=== PATIENT | female | born 1970 | race Caucasian/White ===

== ENCOUNTER 2019-08-09 16:07 | Inpatient (IN) ==
[2019-08-09] MEDS ORDERED: Lidocaine/EPI 1:100k 1% 30 ML VIAL INFILT ONE (16:30)
[2019-08-09] MEDS ORDERED: *HR* HYDROcodone/Acet 5/325 mg TABLET PO ONE (16:32)
[2019-08-09] MEDS ORDERED: Ampicillin/Sulbactam 1,500 MG in 0.9 % Sodium Chloride Mini Bag 100 ML IVPB ONE (17:14)
[2019-08-09 17:45] LABS: Basophils # 0.1 K/mcL (0.0-0.2); Basophils % 0.5 %; Eosinophils # 0.3 K/mcL (0.0-0.6); Eosinophils % 2.1 %; Hematocrit 39.3 % (35.3-44.9); Hemoglobin 12.8 g/dL (11.5-15.4); Immature Granulocytes % 0.6 % (0-4); Lymphocytes % 13.8 %; Mean Corpuscular HGB Conc 32.6 g/dL (31.6-35.5); Mean Corpuscular Hemoglobin 28.4 pg (28.0-33.3); Mean Corpuscular Volume 87.1 fL (83.0-100.0); Mean Platelet Volume 11.8 fL (9.4-12.4); Monocytes % 6.9 %; Neutrophils # 11.1 K/mcL (1.6-8.9); Platelet Count 183 K/mcL (140-400); Red Blood Count 4.51 M/mcL (3.82-4.97); Red Cell Distribution Width 14.2 % (11.5-14.5); Segmented Neutrophils % 76.1 %; White Blood Count 14.5 K/mcL (4.3-11.1)
[2019-08-09 18:08] LABS: BUN/Creatinine Ratio 20 (6-26); Blood Urea Nitrogen 16 mg/dL (6-20); C-Reactive Protein 97 mg/L (Less than 10); Calcium 9.2 mg/dL (8.6-10.3); Carbon Dioxide 25 mEq/L (23-29); Chloride 104 mEq/L (98-107); Glucose 143 mg/dL (70-105); Osmolality,Calculated 288 (280-300); Potassium 3.7 mEq/L (3.5-5.1); Sodium 137 mEq/L (136-145); eGFR For African Americans > 60 (> 60); eGFR For Non-African Americans > 60 (> 60)
[2019-08-09] MEDS ORDERED: Ondansetron ODT 4 MG TAB.RAPDIS SL PRN (18:32)
[2019-08-09] MEDS ORDERED: Ringers Solution, Lactated 1,000 ML IVC ONE (18:39)
[2019-08-09] MEDS ORDERED: Isovue-370 500 ML BOTTLE IVP ONE (18:55)
[2019-08-09] MEDS: *HR* OxyCODONE Immed Rel 5 MG TABLET PO PRN (21:16)
[2019-08-10] MEDS: Ampicillin/Sulbactam 3,000 MG in 0.9 % Sodium Chloride 100 ML IVPB SCH ×2 (00:48→06:00)
[2019-08-10 05:40] LABS: Basophils % 0.3 %; Eosinophils # 0.1 K/mcL (0.0-0.6); Eosinophils % 0.8 %; Hematocrit 38.8 % (35.3-44.9); Hemoglobin 12.7 g/dL (11.5-15.4); Immature Granulocytes % 0.6 % (0-4); Lymphocytes # 1.2 K/mcL (0.6-4.6); Lymphocytes % 9.1 %; Mean Corpuscular HGB Conc 32.7 g/dL (31.6-35.5); Mean Corpuscular Hemoglobin 28.3 pg (28.0-33.3); Mean Corpuscular Volume 86.4 fL (83.0-100.0); Monocytes # 0.7 K/mcL (0.0-1.3); Monocytes % 4.9 %; Neutrophils # 11.4 K/mcL (1.6-8.9); Platelet Count 181 K/mcL (140-400); Red Blood Count 4.49 M/mcL (3.82-4.97); Red Cell Distribution Width 14.4 % (11.5-14.5); Segmented Neutrophils % 84.3 %; White Blood Count 13.5 K/mcL (4.3-11.1)
[2019-08-10] MEDS: *HR* OxyCODONE Immed Rel 5 MG TABLET PO PRN ×3 (06:05→23:54)
[2019-08-10 06:06] LABS: BUN/Creatinine Ratio 16 (6-26); Blood Urea Nitrogen 10 mg/dL (6-20); Calcium 8.8 mg/dL (8.6-10.3); Carbon Dioxide 24 mEq/L (23-29); Chloride 104 mEq/L (98-107); Glucose 191 mg/dL (70-105); Osmolality,Calculated 284 (280-300); Potassium 3.8 mEq/L (3.5-5.1); Sodium 135 mEq/L (136-145); eGFR For African Americans > 60 (> 60); eGFR For Non-African Americans > 60 (> 60)
[2019-08-10] MEDS: FLUoxetine 20 MG CAPSULE PO SCH (09:53)
[2019-08-10] MEDS: BuPROPion XL (24 HR) 150 MG TABLET PO SCH (09:53)
[2019-08-10] MEDS ORDERED: *HR* LORazepam 2 MG/ML VIAL IVP PRN ×3 (12:04)
[2019-08-10] MEDS: Ampicillin/Sulbactam 3,000 MG in 0.9 % Sodium Chloride Mini Bag 100 ML IVPB SCH ×2 (12:13→18:08)
[2019-08-10] MEDS: Folic Acid 1 MG TABLET PO SCH (13:51)
[2019-08-10] MEDS: Thiamine (B-1) 100 MG TABLET PO SCH (13:51)
[2019-08-10] MEDS: Vitamin B Complex/Vit C/Vit E 1 EACH TABLET PO SCH (13:51)
[2019-08-10] MEDS: Chlorhexidine Rinse 15 ML MOUTHWASH MM SCH ×2 (13:51→21:15)
[2019-08-10] MEDS: *HR* Heparin 5,000 UNIT/ML VIAL SQ SCH (21:16)
[2019-08-11] MEDS: Ampicillin/Sulbactam 3,000 MG in 0.9 % Sodium Chloride Mini Bag 100 ML IVPB SCH ×4 (02:22→17:52)
[2019-08-11] MEDS: *HR* Heparin 5,000 UNIT/ML VIAL SQ SCH ×3 (05:48→21:14)
[2019-08-11 05:52] LABS: Basophils % 0.4 %; Eosinophils # 0.2 K/mcL (0.0-0.6); Eosinophils % 2.1 %; Hematocrit 37.1 % (35.3-44.9); Hemoglobin 12.3 g/dL (11.5-15.4); Immature Granulocytes % 0.5 % (0-4); Lymphocytes # 1.6 K/mcL (0.6-4.6); Lymphocytes % 15.7 %; Mean Corpuscular HGB Conc 33.2 g/dL (31.6-35.5); Mean Corpuscular Hemoglobin 28.5 pg (28.0-33.3); Mean Corpuscular Volume 86.1 fL (83.0-100.0); Mean Platelet Volume 11.3 fL (9.4-12.4); Monocytes # 0.5 K/mcL (0.0-1.3); Monocytes % 5.2 %; Platelet Count 189 K/mcL (140-400); Red Blood Count 4.31 M/mcL (3.82-4.97); Red Cell Distribution Width 14.2 % (11.5-14.5); Segmented Neutrophils % 76.1 %; White Blood Count 10.5 K/mcL (4.3-11.1)
[2019-08-11 06:13] LABS: BUN/Creatinine Ratio 19 (6-26); Blood Urea Nitrogen 14 mg/dL (6-20); Calcium 8.9 mg/dL (8.6-10.3); Carbon Dioxide 27 mEq/L (23-29); Chloride 104 mEq/L (98-107); Glucose 123 mg/dL (70-105); Magnesium 2.3 mg/dL (1.6-2.6); Osmolality,Calculated 290 (280-300); Potassium 3.8 mEq/L (3.5-5.1); Sodium 139 mEq/L (136-145); eGFR For African Americans > 60 (> 60); eGFR For Non-African Americans > 60 (> 60)
[2019-08-11] MEDS: BuPROPion XL (24 HR) 150 MG TABLET PO SCH (09:15)
[2019-08-11] MEDS: Thiamine (B-1) 100 MG TABLET PO SCH (09:16)
[2019-08-11] MEDS: FLUoxetine 20 MG CAPSULE PO SCH (09:16)
[2019-08-11] MEDS: *HR* OxyCODONE Immed Rel 5 MG TABLET PO PRN (09:16)
[2019-08-11] MEDS: Folic Acid 1 MG TABLET PO SCH (09:17)
[2019-08-11] MEDS: Vitamin B Complex/Vit C/Vit E 1 EACH TABLET PO SCH (09:17)
[2019-08-11] MEDS: Chlorhexidine Rinse 15 ML MOUTHWASH MM SCH ×2 (09:17→21:14)
[2019-08-12] MEDS: Ampicillin/Sulbactam 3,000 MG in 0.9 % Sodium Chloride Mini Bag 100 ML IVPB SCH ×4 (01:19→17:11)
[2019-08-12] MEDS ORDERED: Melatonin 3 MG TABLET PO PRN (04:07)
[2019-08-12 04:11] LABS: White Blood Count 9.1 K/mcL (4.3-11.1)
[2019-08-12 04:12] LABS: Basophils # 0.1 K/mcL (0.0-0.2); Basophils % 0.7 %; Eosinophils # 0.3 K/mcL (0.0-0.6); Eosinophils % 2.7 %; Hematocrit 35.9 % (35.3-44.9); Hemoglobin 11.7 g/dL (11.5-15.4); Immature Granulocytes % 0.8 % (0-4); Lymphocytes # 2.4 K/mcL (0.6-4.6); Lymphocytes % 26.5 %; Mean Corpuscular HGB Conc 32.6 g/dL (31.6-35.5); Mean Corpuscular Hemoglobin 28.2 pg (28.0-33.3); Mean Corpuscular Volume 86.5 fL (83.0-100.0); Mean Platelet Volume 11.6 fL (9.4-12.4); Monocytes # 0.5 K/mcL (0.0-1.3); Monocytes % 5.7 %; Neutrophils # 5.8 K/mcL (1.6-8.9); Platelet Count 190 K/mcL (140-400); Red Blood Count 4.15 M/mcL (3.82-4.97); Red Cell Distribution Width 14.3 % (11.5-14.5); Segmented Neutrophils % 63.6 %
[2019-08-12 04:35] LABS: BUN/Creatinine Ratio 22 (6-26); Blood Urea Nitrogen 17 mg/dL (6-20); Calcium 8.9 mg/dL (8.6-10.3); Carbon Dioxide 27 mEq/L (23-29); Chloride 105 mEq/L (98-107); Glucose 114 mg/dL (70-105); Magnesium 2.1 mg/dL (1.6-2.6); Osmolality,Calculated 294 (280-300); Sodium 141 mEq/L (136-145); eGFR For African Americans > 60 (> 60); eGFR For Non-African Americans > 60 (> 60)
[2019-08-12] MEDS: *HR* Heparin 5,000 UNIT/ML VIAL SQ SCH ×3 (06:12→20:38)
[2019-08-12] MEDS: Vitamin B Complex/Vit C/Vit E 1 EACH TABLET PO SCH (10:09)
[2019-08-12] MEDS: Thiamine (B-1) 100 MG TABLET PO SCH (10:09)
[2019-08-12] MEDS: BuPROPion XL (24 HR) 150 MG TABLET PO SCH (10:09)
[2019-08-12] MEDS: Chlorhexidine Rinse 15 ML MOUTHWASH MM SCH ×2 (10:10→20:39)
[2019-08-12] MEDS: Folic Acid 1 MG TABLET PO SCH (10:10)
[2019-08-12] MEDS: FLUoxetine 20 MG CAPSULE PO SCH (10:11)
[2019-08-13 04:44] LABS: Basophils # 0.1 K/mcL (0.0-0.2); Basophils % 0.8 %; Eosinophils # 0.4 K/mcL (0.0-0.6); Eosinophils % 5.7 %; Hemoglobin 12.3 g/dL (11.5-15.4); Immature Granulocytes % 1.2 % (0-4); Lymphocytes # 2.1 K/mcL (0.6-4.6); Lymphocytes % 27.1 %; Mean Corpuscular HGB Conc 33.2 g/dL (31.6-35.5); Mean Corpuscular Hemoglobin 28.7 pg (28.0-33.3); Mean Corpuscular Volume 86.2 fL (83.0-100.0); Mean Platelet Volume 11.4 fL (9.4-12.4); Monocytes # 0.5 K/mcL (0.0-1.3); Monocytes % 6.6 %; Neutrophils # 4.5 K/mcL (1.6-8.9); Platelet Count 206 K/mcL (140-400); Red Blood Count 4.29 M/mcL (3.82-4.97); Red Cell Distribution Width 14.1 % (11.5-14.5); Segmented Neutrophils % 58.6 %; White Blood Count 7.7 K/mcL (4.3-11.1)
[2019-08-13 04:55] LABS: BUN/Creatinine Ratio 16 (6-26); Blood Urea Nitrogen 13 mg/dL (6-20); Calcium 9.2 mg/dL (8.6-10.3); Carbon Dioxide 28 mEq/L (23-29); Chloride 103 mEq/L (98-107); Glucose 100 mg/dL (70-105); Magnesium 2.2 mg/dL (1.6-2.6); Osmolality,Calculated 288 (280-300); Sodium 139 mEq/L (136-145); eGFR For African Americans > 60 (> 60); eGFR For Non-African Americans > 60 (> 60)
[2019-08-13 05:05] VITALS: BP 123/76
[2019-08-13] MEDS: *HR* Heparin 5,000 UNIT/ML VIAL SQ SCH (06:53)
[2019-08-13] MEDS: FLUoxetine 20 MG CAPSULE PO SCH (10:00)
[2019-08-13] MEDS: Chlorhexidine Rinse 15 ML MOUTHWASH MM SCH (10:00)
[2019-08-13] MEDS: Folic Acid 1 MG TABLET PO SCH (10:01)
[2019-08-13] MEDS: BuPROPion XL (24 HR) 150 MG TABLET PO SCH (10:01)
[2019-08-13] MEDS: Vitamin B Complex/Vit C/Vit E 1 EACH TABLET PO SCH (10:01)
[2019-08-13] MEDS: Thiamine (B-1) 100 MG TABLET PO SCH (10:01)
[2019-08-13] MEDS ORDERED: Aminoglycoside Consult 1 EACH MC ONE (12:46)
== END 2019-08-13 12:47 | disposition home or self-care (01) | DRG 383 ==
LOC: 3ANU 16:07 → EMEROOARM 16:07 → SUATTDRO 18:41 → 3ANU 20:15
PROVIDERS: ADMIT Internal Medicine; ATTEND Pharmacist

== ENCOUNTER 2019-08-20 09:48 | Inpatient (IN) ==
[2019-08-20 10:56] LABS: Estimated Average Glucose 114 mg/dl
[2019-08-20 11:00] LABS: Bilirubin,Urine Negative (Negative); Blood,Urine Negative (Negative); Clarity,Urine Cloudy (Clear); Color,Urine Yellow (Yellow); Glucose,Urine (UA) Normal (Normal); Ketones,Urine Negative (Negative); Leukocyte Esterase,Urine Negative (Negative); Nitrite,Urine Negative (Negative); Protein,Urine Negative (Neg-Trace); Specific Gravity,Urine 1.025 (1.010-1.025); Urobilinogen,Urine Normal (Normal)
[2019-08-20 11:00] LABS: Basophils # 0.1 K/mcL (0.0-0.2); Basophils % 1.1 %; Eosinophils # 0.2 K/mcL (0.0-0.6); Eosinophils % 2.4 %; Hematocrit 42.6 % (35.3-44.9); Hemoglobin 13.9 g/dL (11.5-15.4); Immature Granulocytes % 1.4 % (0-4); Lymphocytes # 1.7 K/mcL (0.6-4.6); Lymphocytes % 19.1 %; Mean Corpuscular HGB Conc 32.6 g/dL (31.6-35.5); Mean Corpuscular Hemoglobin 27.8 pg (28.0-33.3); Mean Corpuscular Volume 85.2 fL (83.0-100.0); Mean Platelet Volume 10.6 fL (9.4-12.4); Monocytes # 0.6 K/mcL (0.0-1.3); Monocytes % 6.1 %; Neutrophils # 6.3 K/mcL (1.6-8.9); Platelet Count 223 K/mcL (140-400); Red Cell Distribution Width 14.5 % (11.5-14.5); Segmented Neutrophils % 69.9 %
[2019-08-20 11:04] LABS: Bacteria,Urine None Seen per hpf (None-Few); Hyaline Casts,Urine None Seen per lpf (None-Few); Squamous Epithelial Cell,Urine Many per lpf (None-Few); WBC,Urine 0-3 per hpf (0-3)
[2019-08-20 11:05] LABS: Amphetamine Screen,Urine Negative ng/mL (Cutoff=1000); Barbiturate Screen,Urine Negative ng/mL (Cutoff=200); Benzodiazepines Screen,Urine Negative ng/mL (Cutoff=200); Cannabinoid Screen,Urine Negative ng/mL (Cutoff = 50); Cocaine Screen,Urine Negative ng/mL (Cutoff= 300); Opiate Screen,Urine Positive ng/mL (Cutoff=300); Phencyclidine Screen,Urine Negative ng/mL (Cutoff=25)
[2019-08-20 11:47] LABS: Acetaminophen < 10 mcg/mL (10-20); BUN/Creatinine Ratio 16 (6-26); Blood Urea Nitrogen 15 mg/dL (6-20); Calcium 9.8 mg/dL (8.6-10.3); Carbon Dioxide 21 mEq/L (23-29); Chloride 104 mEq/L (98-107); Cholesterol 173 mg/dL (< 200); Ethanol < 10 mg/dL (Less than 10); Glucose 111 mg/dL (70-105); Osmolality,Calculated 282 (280-300); Potassium 4.1 mEq/L (3.5-5.1); Salicylate < 2.5 mg/dL (15.0-30.0); Sodium 135 mEq/L (136-145); Triglycerides 110 mg/dL (< 150); eGFR For African Americans > 60 (> 60); eGFR For Non-African Americans > 60 (> 60)
[2019-08-20] MEDS ORDERED: Haloperidol Lactate 5 MG/ML VIAL IM PRN (13:03)
[2019-08-20] MEDS ORDERED: Mag Hydrox/Al Hydrox/Simeth 30 ML UDC PO PRN (13:03)
[2019-08-20] MEDS ORDERED: *HR* LORazepam 1 MG TABLET PO PRN (13:03)
[2019-08-20] MEDS ORDERED: *HR* LORazepam 2 MG/ML VIAL IM PRN (13:03)
[2019-08-20] MEDS ORDERED: MOM Conc 10 ML UD.LIQ PO PRN (13:03)
[2019-08-20 13:11] LABS: Chol/HDL Ratio 2.8 (0-4.9); HDL Cholesterol 62 mg/dL (40-59); LDL Cholesterol,Calculated 89 mg/dL (0-99)
[2019-08-20] MEDS: hydrOXYzine pamoate 25 MG CAPSULE PO PRN ×2 (18:38→22:07)
[2019-08-20] MEDS: Acetaminophen 325 MG TABLET PO PRN (22:07)
[2019-08-20] MEDS: traZODone 50 MG TABLET PO PRN (22:07)
[2019-08-21] MEDS: Acetaminophen 325 MG TABLET PO PRN ×2 (08:55→16:27)
[2019-08-21] MEDS ORDERED: cloNIDine HCl 0.1 MG TABLET PO PRN (10:36)
[2019-08-21] MEDS ORDERED: Baclofen 10 MG TABLET PO PRN (10:38)
[2019-08-21] MEDS ORDERED: NON-FORMULARY MEDICATION 1 EACH EACH (Biotin 1 MG) PO SCH (10:45)
[2019-08-21] MEDS: BuPROPion XL (24 HR) 150 MG TABLET PO SCH (12:09)
[2019-08-21] MEDS: Vitamin B Complex/Vit C/Vit E 1 EACH TABLET PO SCH (12:10)
[2019-08-21] MEDS: Doxycycline 100 MG CAPSULE PO SCH ×2 (12:10→20:19)
[2019-08-21] MEDS: Folic Acid 1 MG TABLET PO SCH (12:10)
[2019-08-21] MEDS: Thiamine (B-1) 100 MG TABLET PO SCH (12:10)
[2019-08-21] MEDS: Sulfamethoxazole/Trimeth DS 1 EACH TABLET PO SCH ×2 (12:10→20:21)
[2019-08-21] MEDS: Chlorhexidine Rinse 15 ML MOUTHWASH MM SCH ×2 (14:43→20:19)
[2019-08-21] MEDS: Lactobacillus 1 EACH CAP.SPRINK PO SCH ×2 (14:43→20:21)
[2019-08-21] MEDS: risperiDONE 1 MG TABLET PO SCH (20:19)
[2019-08-21] MEDS: hydrOXYzine pamoate 25 MG CAPSULE PO PRN (20:19)
[2019-08-22] MEDS: Vitamin B Complex/Vit C/Vit E 1 EACH TABLET PO SCH (08:39)
[2019-08-22] MEDS: Sulfamethoxazole/Trimeth DS 1 EACH TABLET PO SCH ×2 (08:39→20:25)
[2019-08-22] MEDS: Thiamine (B-1) 100 MG TABLET PO SCH (08:39)
[2019-08-22] MEDS: risperiDONE 1 MG TABLET PO SCH ×2 (08:39→20:26)
[2019-08-22] MEDS: Lactobacillus 1 EACH CAP.SPRINK PO SCH ×2 (08:39→20:26)
[2019-08-22] MEDS: BuPROPion XL (24 HR) 150 MG TABLET PO SCH (08:40)
[2019-08-22] MEDS: Folic Acid 1 MG TABLET PO SCH (08:40)
[2019-08-22] MEDS: Chlorhexidine Rinse 15 ML MOUTHWASH MM SCH ×2 (08:41→20:25)
[2019-08-22] MEDS: Doxycycline 100 MG CAPSULE PO SCH ×2 (08:41→20:26)
[2019-08-22] MEDS: hydrOXYzine pamoate 25 MG CAPSULE PO PRN (20:25)
[2019-08-22] MEDS: traZODone 50 MG TABLET PO PRN (20:26)
[2019-08-23] MEDS: BuPROPion XL (24 HR) 150 MG TABLET PO SCH (08:40)
[2019-08-23] MEDS: Doxycycline 100 MG CAPSULE PO SCH ×2 (08:40→20:19)
[2019-08-23] MEDS: Thiamine (B-1) 100 MG TABLET PO SCH (08:40)
[2019-08-23] MEDS: Lactobacillus 1 EACH CAP.SPRINK PO SCH ×2 (08:41→20:22)
[2019-08-23] MEDS: Sulfamethoxazole/Trimeth DS 1 EACH TABLET PO SCH ×2 (08:41→20:21)
[2019-08-23] MEDS: risperiDONE 1 MG TABLET PO SCH ×2 (08:41→20:23)
[2019-08-23] MEDS: Vitamin B Complex/Vit C/Vit E 1 EACH TABLET PO SCH (08:41)
[2019-08-23] MEDS: Chlorhexidine Rinse 15 ML MOUTHWASH MM SCH ×2 (08:42→20:18)
[2019-08-23] MEDS: Folic Acid 1 MG TABLET PO SCH (08:42)
[2019-08-23] MEDS: hydrOXYzine pamoate 25 MG CAPSULE PO PRN (20:21)
[2019-08-23] MEDS: traZODone 50 MG TABLET PO PRN (20:22)
[2019-08-24] MEDS: risperiDONE 1 MG TABLET PO SCH (08:20)
[2019-08-24] MEDS: Thiamine (B-1) 100 MG TABLET PO SCH (08:21)
[2019-08-24] MEDS: Sulfamethoxazole/Trimeth DS 1 EACH TABLET PO SCH (08:21)
[2019-08-24] MEDS: Lactobacillus 1 EACH CAP.SPRINK PO SCH (08:21)
[2019-08-24] MEDS: BuPROPion XL (24 HR) 150 MG TABLET PO SCH (08:21)
[2019-08-24] MEDS: Folic Acid 1 MG TABLET PO SCH (08:21)
[2019-08-24] MEDS: Vitamin B Complex/Vit C/Vit E 1 EACH TABLET PO SCH (08:22)
[2019-08-24] MEDS: Doxycycline 100 MG CAPSULE PO SCH (08:22)
[2019-08-24] MEDS: Chlorhexidine Rinse 15 ML MOUTHWASH MM SCH (08:23)
[2019-08-24 09:06] VITALS: BP 106/71
== END 2019-08-24 11:46 | disposition home or self-care (01) | DRG 753 ==
LOC: EMEROOARM 09:48 → 1ANU 13:01
PROVIDERS: ADMIT Psychiatry & Neurology Psychiatry; ATTEND Psychiatry & Neurology Psychiatry

== ENCOUNTER 2021-11-19 12:52 | Inpatient (IN) ==
[2021-11-19 13:44] LABS: Basophils # 0.1 K/mcL (0.0-0.2); Basophils % 0.5 %; Eosinophils # 0.1 K/mcL (0.0-0.6); Eosinophils % 0.5 %; Hematocrit 46.1 % (35.3-44.9); Hemoglobin 15.2 g/dL (11.5-15.4); Immature Granulocytes % 0.4 % (0-4); Lymphocytes # 2.2 K/mcL (0.6-4.6); Lymphocytes % 16.8 %; Mean Corpuscular Hemoglobin 28.8 pg (28.0-33.3); Mean Corpuscular Volume 87.3 fL (83.0-100.0); Mean Platelet Volume 11.5 fL (9.4-12.4); Monocytes # 0.4 K/mcL (0.0-1.3); Monocytes % 3.3 %; Neutrophils # 10.1 K/mcL (1.6-8.9); Platelet Count 203 K/mcL (140-400); Red Blood Count 5.28 M/mcL (3.82-4.97); Red Cell Distribution Width 14.2 % (11.5-14.5); Segmented Neutrophils % 78.5 %; White Blood Count 12.9 K/mcL (4.3-11.1)
[2021-11-19 13:54] LABS: Bilirubin,Urine Negative (Negative); Blood,Urine Negative (Negative); Clarity,Urine Clear (Clear); Color,Urine Yellow (Yellow); Glucose,Urine (UA) Normal (Normal); Hyaline Casts,Urine Few per lpf (None Seen); Ketones,Urine 10 mg/dL (Negative); Leukocyte Esterase,Urine Trace (Negative); Mucus,Urine Few per lpf (None-Few); Nitrite,Urine Negative (Negative); Protein,Urine Trace mg/dL (Neg-Trace); Specific Gravity,Urine > 1.030 (1.010-1.025); Squamous Epithelial Cell,Urine Few per hpf (None-Few); WBC,Urine 0-3 per hpf (0-3)
[2021-11-19 13:55] LABS: Acetaminophen < 10 mcg/mL (10-20); BUN/Creatinine Ratio 23 (6-26); Blood Urea Nitrogen 23 mg/dL (6-20); Calcium 9.5 mg/dL (8.6-10.3); Carbon Dioxide 23 mEq/L (23-29); Chloride 108 mEq/L (98-107); Chol/HDL Ratio 2.7 (0-4.9); Cholesterol 157 mg/dL (< 200); Ethanol < 10 mg/dL (Less than 10); Glucose 137 mg/dL (70-105); HDL Cholesterol 59 mg/dL (40-59); LDL Cholesterol,Calculated 68 mg/dL (< 100); Osmolality,Calculated 296 (280-300); Potassium 3.8 mEq/L (3.5-5.1); Salicylate < 2.5 mg/dL (15.0-30.0); Sodium 140 mEq/L (136-145); Triglycerides 148 mg/dL (< 150); eGFR For African Americans > 60 (> 60); eGFR For Non-African Americans 59 (> 60)
[2021-11-19 14:05] LABS: Estimated Average Glucose 120 mg/dl; Hemoglobin A1C 5.8 %
[2021-11-19] MEDS ORDERED: OLANZapine 10 MG TAB.RAPDIS PO STA (18:34)
[2021-11-19 20:53] LABS: Amphetamine Screen,Urine Negative ng/mL (Cutoff=1000); Barbiturate Screen,Urine Negative ng/mL (Cutoff=200); Benzodiazepines Screen,Urine Negative ng/mL (Cutoff=200); Cannabinoid Screen,Urine Negative ng/mL (Cutoff = 50); Cocaine Screen,Urine Negative ng/mL (Cutoff= 300); Opiate Screen,Urine Negative ng/mL (Cutoff=300); Phencyclidine Screen,Urine Negative ng/mL (Cutoff=25)
[2021-11-20 09:58] LABS: Influenza A PCR Negative (Negative); Influenza B PCR Negative (Negative); Resp. Syncytial Virus PCR Negative (Negative)
[2021-11-20 10:00] LABS: SARS-CoV-2 by PCR (In House) Negative (Negative)
[2021-11-20] MEDS ORDERED: Mag Hydrox/Al Hydrox/Simeth 30 ML UDC PO PRN (11:17)
[2021-11-20] MEDS ORDERED: MOM Conc 10 ML UD.LIQ PO PRN (11:17)
[2021-11-20] MEDS ORDERED: haloperidoL 5 MG TABLET PO PRN (11:17)
[2021-11-20] MEDS ORDERED: *HR* LORazepam 2 MG/ML VIAL IM PRN (11:17)
[2021-11-20] MEDS ORDERED: Haloperidol Lactate 5 MG/ML VIAL IM PRN (11:17)
[2021-11-20] MEDS ORDERED: *HR* LORazepam 1 MG TABLET PO PRN (11:17)
[2021-11-20] MEDS: Thiamine (B-1) 100 MG TABLET PO SCH (13:07)
[2021-11-20] MEDS: Acetaminophen 325 MG TABLET PO PRN (13:07)
[2021-11-20] MEDS: Nicotine 14 MG PATCH.TD24 TD SCH (16:11)
[2021-11-20] MEDS: metroNIDAZOLE 500 MG TABLET PO SCH (21:44)
[2021-11-20] MEDS: traZODone 50 MG TABLET PO PRN (21:46)
[2021-11-21] MEDS: Nicotine 14 MG PATCH.TD24 TD SCH (09:12)
[2021-11-21] MEDS: Thiamine (B-1) 100 MG TABLET PO SCH (09:13)
[2021-11-21] MEDS: metroNIDAZOLE 500 MG TABLET PO SCH ×2 (09:13→20:47)
[2021-11-21] MEDS: ARIPiprazole 5 MG TABLET PO SCH (09:14)
[2021-11-21] MEDS: Acetaminophen 325 MG TABLET PO PRN (13:59)
[2021-11-21] MEDS: traZODone 50 MG TABLET PO PRN (20:47)
[2021-11-22] MEDS: Thiamine (B-1) 100 MG TABLET PO SCH (08:48)
[2021-11-22] MEDS: ARIPiprazole 5 MG TABLET PO SCH (08:48)
[2021-11-22] MEDS: Nicotine 14 MG PATCH.TD24 TD SCH (08:48)
[2021-11-22] MEDS: metroNIDAZOLE 500 MG TABLET PO SCH ×2 (08:49→20:52)
[2021-11-22] MEDS: hydrOXYzine pamoate 25 MG CAPSULE PO PRN (20:52)
[2021-11-22] MEDS: traZODone 50 MG TABLET PO PRN (20:52)
[2021-11-23] MEDS: Nicotine 14 MG PATCH.TD24 TD SCH (08:44)
[2021-11-23] MEDS: ARIPiprazole 10 MG TABLET PO SCH (08:45)
[2021-11-23] MEDS: Thiamine (B-1) 100 MG TABLET PO SCH (08:45)
[2021-11-23] MEDS: metroNIDAZOLE 500 MG TABLET PO SCH ×2 (08:45→20:13)
[2021-11-23] MEDS: Acetaminophen 325 MG TABLET PO PRN (11:27)
[2021-11-23] MEDS: hydrOXYzine pamoate 25 MG CAPSULE PO PRN (18:19)
[2021-11-23] MEDS: traZODone 50 MG TABLET PO PRN (20:13)
[2021-11-23 21:47] LABS: Amphetamines NEGATIVE ng/mL (Cutoff 20); Barbiturates NEGATIVE ng/mL (Cutoff 50); Benzodiazepines NEGATIVE ng/mL (Cutoff 50); Buprenorphine NEGATIVE ng/mL (Cutoff 1); Cocaine NEGATIVE ng/mL (Cutoff 20); Methadone NEGATIVE ng/mL (Cutoff 25); Methamphetamines NEGATIVE ng/mL (Cutoff 20); Opiates NEGATIVE ng/mL (Cutoff 20); Phencyclidine NEGATIVE ng/mL (Cutoff 10)
[2021-11-24] MEDS: metroNIDAZOLE 500 MG TABLET PO SCH ×2 (08:38→19:58)
[2021-11-24] MEDS: Nicotine 14 MG PATCH.TD24 TD SCH (08:38)
[2021-11-24] MEDS: ARIPiprazole 10 MG TABLET PO SCH (08:38)
[2021-11-24] MEDS: Thiamine (B-1) 100 MG TABLET PO SCH (08:38)
[2021-11-24] MEDS ORDERED: ARIPiprazole 5 MG TABLET PO ONE (09:16)
[2021-11-24] MEDS: traZODone 50 MG TABLET PO PRN (19:58)
[2021-11-24] MEDS: hydrOXYzine pamoate 25 MG CAPSULE PO PRN (19:59)
[2021-11-25] MEDS: metroNIDAZOLE 500 MG TABLET PO SCH (08:52)
[2021-11-25] MEDS: Thiamine (B-1) 100 MG TABLET PO SCH (08:52)
[2021-11-25] MEDS: Nicotine 14 MG PATCH.TD24 TD SCH (08:56)
[2021-11-25] MEDS ORDERED: Ergocalciferol (VIT D2) 50,000 UNIT (1.25MG) CAP PO SCH (09:00)
[2021-11-25] MEDS ORDERED: ARIPiprazole 10 MG TABLET PO SCH (09:00)
[2021-11-25 09:36] VITALS: BP 119/75; PULSE 82; TEMP 98.1; O2SAT 95
== END 2021-11-25 14:10 | disposition home or self-care (01) | DRG 753 ==
LOC: EMEROOARM 12:52 → 1ANU 11-20 10:07
PROVIDERS: ADMIT Psychiatry & Neurology Psychiatry; ATTEND Psychiatry & Neurology Psychiatry